=== PATIENT | female | born 1950 | race Caucasian/White ===

== ENCOUNTER 2019-05-25 02:11 | Emergency (ER) | payer MEDICARE, MEDICAID ==
[~2019-05-25] VITALS: Ht 147.3 cm; Wt 72.0 kg
[2019-05-25 02:16] VITALS: BP 181/75
[2019-05-25] MEDS ORDERED: ALBU8.5H8 INH (02:28)
[2019-05-25] MEDS ORDERED: PRED20TA PO (02:28)
[2019-05-25] MEDS ORDERED: diphenhydrAMINE 25mg capsule PO ONE (02:30)
[2019-05-25] MEDS ORDERED: predniSONE 20 mg tablet PO ONE (02:30)
== END 2019-05-25 02:46 | disposition home or self-care (01) ==
LOC: ER 02:14
DX: T78.40XA Allergy, unspecified, initial encounter (principal); Z79.899 Other long term (current) drug therapy; X58.XXXA Exposure to other specified factors, initial encounter; Y93.89 Activity, other specified; Y92.89 Other specified places as the place of occurrence of the external cause; Y99.8 Other external cause status
CPT/HCPCS: 99283; J7512; Q0163

== ENCOUNTER 2025-06-03 17:37 | Emergency (ER) | payer MEDICARE, OTHER ==
[~2025-06-03] VITALS: Ht 137.2 cm; Wt 67.0 kg
[~2025-06-03 17:37] MED LIST: ALBU8.5H17 INH
--- NOTE | 2025-06-03 18:10 | Physician Documentation ---
History of Present Illness ~ Chief Complaint: Wound Stated Complaint: FEET/ R HIP PAIN Time Seen by MD: 21:19 HPI Patient is a 75-year-old female that presents to the emergency department accompanied by her son for evaluation of bilateral feet wounds. Patient reports that her feet have become more swollen and more painful over the last couple of weeks. Patient reports that she has seen by Dr. Beatty who prescribed an antifungal cream for them and placed see lead on them approximately 2 weeks ago. Patient reports at that time he also gave her oral antibiotics but her feet have become progressively worse since that time despite taking the antibiotics. Patient denies fever chills nausea vomiting diarrhea. But does report significant pain tenderness and edema in her feet. Patient reports they are draining despite having dressings applied to them in attempting to keep them clean. Patient reports they are very painful and she is unable to ambulate normally. Medication Reconciliation Allergies: Coded Allergies: No Known Allergies (Unverified , 06/03/25) Scheduled Albuterol Sulfate (Proair Hfa), 2 PUFFS INH Q4HPRN Scheduled PRN Hydrocodone Bit/Acetaminophen 5/325 MG (Laguna 5/325 MG), 0.5-1 TAB PO Q4-6 hours PRN for pain ONDANSETRON ODT 4mg tablet (Ondansetron Odt), 1 TAB PO Q6H PRN PRN for nausea/vomiting Past Medical History Past Medical History: No Pertinent History Past Surgical History: noncontributory Alcohol Use: None Drug Use: none Lives with: Spouse Lives In: Home Physical Exam Vital Signs: Temperature: 99.0, Source: Temporal, Heart Rate: 94, Respiratory Rate: 18, BP: 186/97, Pulse Oximetry: 100, Weight: 67.000 Oxygen Flow Rate: 0 Progress Results/Orders Results/Orders Orders - ZAID HILL MD Hip Unilateral 2-3 Views (06/03/25 23:47) Completed Orders - ZAID HILL MD MG (06/03/25 21:30) PBNP (06/03/25 21:30) Urinalysis (06/03/25 21:30) Hs Troponin I W Calculations (06/03/25 21:30) Procalcitonin (06/03/25 21:30) BMP (06/03/25 22:15) Cbc/Diff (06/03/25 23:34) Hip Unilateral 2-3 Views (06/03/25 23:47) Acetaminophen 325mg Tablet (Tylenol Tabl (06/03/25 23:50) Ibuprofen Tablet (Motrin Tablet) (06/03/25 23:50) Medications Received in ER Medications (Trade) Dose Ordered Sig/Shavonne Route PRN Reason Start Time Stop Time Status Last Admin Dose Admin (Tylenol tablet) 975 mg ONCE ONCE PO 06/03/25 23:50 06/03/25 23:51 DC 06/04/25 00:01 975 MG (Motrin tablet) 400 mg ONCE ONCE PO 06/03/25 23:50 06/03/25 23:51 DC 06/04/25 00:01 400 MG Vital Signs 06/03/25 06/03/25 06/03/25 06/03/25 17:41 21:10 21:10 22:10 Temp 99.0 Pulse 94 76 83 Resp 18 16 18 B/P (MAP) 186/97 161/103 (122) 175/84 (114) Pulse Ox 100 99 97 O2 Flow Rate 0 0 0 06/03/25 23:56 Pulse 108 Resp 18 B/P (MAP) 187/92 (123) Pulse Ox 97 O2 Flow Rate 0 Laboratory Tests Test 06/03/25 22:15 06/03/25 22:26 06/03/25 23:44 CBC Comment Sodium Level 142 Potassium Level 4.5 Chloride Level 107 Carbon Dioxide Level 27.4 Anion Gap 8 Blood Urea Nitrogen 29 H Creatinine 1.07 H Estimated GFR/1.73 m2 50 BUN/Creatinine Ratio 27.1 H Glucose Level 96 Calcium Level 9.7 Magnesium Level 1.7 Troponin I High Sensitivity 29 Pro-B-Type Natriuretic Peptide 272 Albumin 3.3 L Procalcitonin < 0.05 Chemistry Comments Urine Specimen Description Non-specified Urine Color Straw Urine Clarity Clear Urine pH 5.5 Urine Specific Lebeau 1.010 Urine Protein Negative Urine Glucose (UA) Negative Urine Ketones Negative Urine Occult Blood Negative Urine Nitrite Negative Urine Bilirubin Negative Urine Urobilinogen 0.2 Urine Leukocyte Esterase Negative Volume Urine Centrifuged 10 ml Urine Comment White Blood Count 7.3 Red Blood Count 4.66 Hemoglobin 13.9 Hematocrit 42.0 Mean Corpuscular Volume 90.1 Mean Corpuscular Hemoglobin 29.9 Mean Corpuscular Hemoglobin Concent 33.2 Red Cell Distribution Width 14.5 Platelet Count 189 Mean Platelet Volume 9.2 Neutrophils (%) (Auto) 51.5 Lymphocytes (%) (Auto) 35.3 Monocytes (%) (Auto) 11.9 Eosinophils (%) (Auto) 0.7 Basophils (%) (Auto) 0.6 Neutrophils # (Auto) 3.8 Lymphocytes # (Auto) 2.6 Monocytes # (Auto) 0.9 Eosinophils # (Auto) 0.1 Basophils # (Auto) 0.0 Medical Decision Making Additional information obtaine: old records Findings Patient presents to the emergency room for evaluation of right hip pain and bilateral foot edema. Symptoms are chronic in nature. X-ray of the hip performed to look for cryptic fracture however no fracture seen however severe arthritis seen. Patient isn't taking any medications for pain. That has able to look through her fire prevention officer recommendations for pain control and it shows ibuprofen and Tylenol. This was discussed with the son at bedside. He has been referred to [facility] but that has not heard back from them. That has instructed him to go to [facility] personally and inquire about the referral that has been sent. Differential Dx:Considerations: Include: Abscess, Cellulitis, Dressing change, Healing wound, Other Departure Disposition: 01 HOME / SELF CARE / HOMELESS Impression: Primary Impression: Edema of both lower extremities Additional Impression: Arthritis Condition: Stable Discharge Instructions: Arthritis, Peripheral Edema Additional Instructions: Follow up with [facility] as discussed. Ibuprofen and Tylenol as disc ussed. only use Laguna if Ibuprofen and tylenol isn't enough. Do not take if not monitored closely by your son and start with only half a tablet Referrals: NO PRIMARY CARE PROVIDER (PCP) Prescriptions ONDANSETRON ODT 4mg tablet (ONDANSETRON ODT) 4 Mg Tab.rapdis 1 TAB PO Q6H PRN PRN for nausea/vomiting for 4 Days, #16 TAB 0 Refills Prov: ZAID HILL MD 06/04/25 Hydrocodone Bit/Acetaminophen 5/325 MG (Laguna 5/325 MG) 5 Mg/325 Mg Tablet 0.5-1 TAB PO Q4-6 hours PRN for pain, #10 TAB Prov: ZAID HILL MD 06/04/25 Signature Scribe Signature: No scribe Attestation: The note accurately reflects work and decisions made by me.Zaid Hill MD 06/04/25 00:58 MATY SPARKS Jun 03, 2025 18:10 ZAID HILL MD Jun 04, 2025 00:58
[2025-06-03 23:15] LABS: CREATININE 1.07 MG/DL (0.40-0.90); PRO BRAIN NATRIURETIC PEPTIDE 272 PG/ML (0-450); TOTAL CARBON DIOXIDE 27.4 MMOL/L (24-32); eCRCL 22 ML/MIN; eGFR 50 ML/MIN
[2025-06-03 23:53] LABS: MEAN PLATELET VOLUME 9.2 FL (7.4-10.4); RED CELL DISTRIBUTION WIDTH 14.5 % (11.5-14.5)
[2025-06-03 23:56] LABS: LEUKOCYTE ESTERASE ,URINE NEGATIVE (Neg); NITRITES, URINE NEGATIVE (Neg); OCCULT BLOOD,URINE NEGATIVE (Neg)
[2025-06-03 23:59] LABS: UA COLLECTION TYPE NON-SPECIFIED
[2025-06-04] MEDS: ibuprofen tablet 400 MG TABLET PO ONE (00:01)
--- NOTE | 2025-06-04 00:42 | RADIOLOGY REPORT ---
CLINICAL INDICATION: hip pain TECHNIQUE: HIP [id number] HIP UNILATERAL 2-3 VIEWS COMPARISON: None FINDINGS/IMPRESSION: : No fracture or malalignment. 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
[2025-06-04] MEDS ORDERED: ONDA-243 PO (01:17)
[2025-06-04] MEDS ORDERED: HYDR-3965 PO (01:17)
[2025-06-04 01:30] VITALS: BP 117/64; PULSE 70; RESP 16; TEMP 97.8; O2SAT 99
== END 2025-06-04 02:27 | disposition home or self-care (01) ==
LOC: ER 17:37
DX: R60.0 Localized edema (principal); M19.90 Unspecified osteoarthritis, unspecified site; Z79.899 Other long term (current) drug therapy
CPT/HCPCS: 36415; 73502; 80048; 81003; 83735; 83880; 84145; 84484; 85025; 99285